=== PATIENT | female | born 1955 | race Caucasian/White ===

== ENCOUNTER → 2019-06-02 09:35 | Outpatient (CLI) | payer BC | END | disposition home or self-care (01) | LOC: D.US 09:35 | PROVIDERS: ATTEND Student in an Organized Health Care Education/Training Program | DX: M79.605 Pain in left leg (principal) ==

== ENCOUNTER 2019-06-28 08:00 | Outpatient (CLI) | payer BC | END 2019-06-28 23:59 | disposition home or self-care (01) | LOC: D.MAMMO 08:00 | PROVIDERS: ATTEND Student in an Organized Health Care Education/Training Program | DX: Z12.31 Encounter for screening mammogram for malignant neoplasm of breast (principal) ==